=== PATIENT | female | born 1935 | race Caucasian/White ===

== ENCOUNTER → 2016-04-13 | Outpatient (CLI) | payer MEDICARE, OTHER ==
[2016-04-13 11:18] LABS: ALBUMIN 3.8 g/dL (3.4-5.0); ANION GAP 15.4 MEQ/L (3-15); CALCULATED IONIZED CALCIUM 4.5 mg/dL (3.8-4.6); TOTAL PROTEIN 6.9 g/dL (6.4-8.5)
== END ==
LOC: LAB 10:29
PROVIDERS: ATTEND Internal Medicine Hematology & Oncology
DX: C34.32 Malignant neoplasm of lower lobe, left bronchus or lung (principal)
CPT/HCPCS: 36415; 80053

== ENCOUNTER → 2016-04-15 | Outpatient (CLI) | payer MEDICARE, OTHER | LOC: RAD 07:59 | PROVIDERS: ATTEND Internal Medicine Hematology & Oncology | DX: C34.32 Malignant neoplasm of lower lobe, left bronchus or lung (principal); E78.2 Mixed hyperlipidemia; E13.65 Other specified diabetes mellitus with hyperglycemia; E03.4 Atrophy of thyroid (acquired); M81.0 Age-related osteoporosis without current pathological fracture | CPT/HCPCS: 36415; 71260; 80061; 82360; 83036; 84436; 84443; Q9967; 82306 ==

== ENCOUNTER → 2016-07-17 | Outpatient (CLI) | payer MEDICARE, OTHER ==
--- NOTE | 2016-07-17 12:29 | Diagnostic Imaging Report ---
PROCEDURE: CT chest with contrast only. TECHNIQUE: Multiple contiguous axial images were obtained through the chest after administration of intravenous contrast. INDICATION: Followup lung cancer. COMPARISON: 04/15/2016. FINDINGS: The left lobe of the thyroid gland is diffusely enlarged and inhomogeneous which is similar to the prior exam. The right lobe is absent. There are no pathologically enlarged lymph nodes in the mediastinum or bucky. Elevation of the left hemidiaphragm is present consistent with volume loss. There is no parenchymal lung lesion. There is no pleural or pericardial effusion. A small esophageal hiatal hernia is present. Multiple splenic cysts, some with calcification are noted unchanged from the comparison and 04/17/2005 CT scan. The left adrenal gland is partially imaged and is calcified, also unchanged, probably from old hemorrhage or infection. No osteolytic or osteoblastic lesion is identified. IMPRESSION: 1. Negative for recurrence. Stable appearance to the abnormal left thyroid lobe and splenic cystic lesions. Dictated by: Dictated on workstation # [id number]
== END ==
LOC: RAD 10:12
PROVIDERS: ATTEND Internal Medicine Hematology & Oncology
DX: C34.32 Malignant neoplasm of lower lobe, left bronchus or lung (principal)
CPT/HCPCS: 36415; 71260; 82565; Q9967